=== PATIENT | female | born 1965 | race Caucasian/White ===

== ENCOUNTER 2017-01-19 11:08 | Inpatient (IN) ==
[2017-01-13 12:39] LABS: Appearance,Urine CLEAR; Bilirubin,Urine NEG (NEG); Color,Urine STRAW; Glucose,Urine (UA) NEGATIVE (NEG); Leukocyte Esterase,Urine NEG /uL (NEG); Nitrate,Urine NEG (NEG); Protein,Urine NEG (NEG); Specific Gravity,Urine 1.008 (1.000-1.035); Urine Blood NEG mg/dL (<0.03); Urobilinogen,Urine NEG (NEG)
[2017-01-13 15:25] LABS: Basophils # (Auto) 0 K/mcL (0.0-0.3); Basophils % (Auto) 0.4 % (0.0-2.0); Eosinophils # (Auto) 0.2 K/mcL (0.0-0.7); Eosinophils % (Auto) 1.9 % (0.0-7.0); Granulocytes % (Auto) 75.7 % (38.0-78.0); Lymphocytes # (Auto) 1.7 K/mcL (1.5-4.8); Lymphocytes % (Auto) 17.1 % (15.5-49.0); Mean Cell Volume 85.7 fL (80.0-100.0); Mean Corpuscular HGB Conc 32.3 g/dL (31.0-36.0); Mean Corpuscular Hemoglobin 27.7 pg (26.0-34.0); Monocytes # (Auto) 0.5 K/mcL (0.1-0.9); Monocytes % (Auto) 4.9 % (1.0-9.0); Platelet Count 312 K/mcL (140-440); Red Cell Distribution Width 13.5 % (11.5-14.5)
[2017-01-13 15:34] LABS: Blood Urea Nitrogen 11 mg/dl (6-20)
[~2017-01-19 11:08] MED LIST: ACETAMINOPHEN 500 MG TABLET PO SCH; CLINDAMYCIN 900 MG in DEXTROSE 5% IN WATER 50 ML IV SCH; KETOROLAC 30 MG, ROPIVACAINE HCL/PF 49.5 ML, EPINEPHrine 0.5 MG, 0.9 % SODIUM CHLORIDE ... IJ SCH; PREGABALIN 150 MG CAPSULE PO SCH; ceFAZolin 1 GM VIAL IV SCH; oxyCODONE 10 MG TAB.ER.12H PO SCH
[2017-01-19] MEDS ORDERED: ROPIVACAINE HCL/PF 30 ML VIAL IJ ONE (14:45)
[2017-01-19] MEDS ORDERED: MIDAZOLAM 5 MG/5 ML VIAL IV ONE (14:45)
[2017-01-19] MEDS ORDERED: fentaNYL 250 MCG/5 ML VIAL IV ONE (14:45)
[2017-01-19] MEDS ORDERED: DEXAMETHASONE 10 MG/ML VIAL IV ONE (14:45)
[2017-01-19] MEDS ORDERED: PROPOFOL 200 MG/20 ML VIAL IV ONE (14:45)
[2017-01-19] MEDS ORDERED: TRANEXAMIC ACID 1,000 MG/10 ML VIAL IV ONE (14:45)
[2017-01-19] MEDS ORDERED: ONDANSETRON 4 MG/2 ML VIAL IV ONE (14:45)
[2017-01-19] MEDS ORDERED: LIDOCAINE HCL/PF 100 MG/5 ML SYRINGE IV ONE (14:45)
[2017-01-19] MEDS ORDERED: GENTAMICIN SULFATE 800 MG/20 ML VIAL IR ONE (15:29)
[2017-01-19] MEDS ORDERED: BENZOCAINE/MENTHOL 1 LOZENGE PO PRN ×2 (16:18→16:35)
[2017-01-19] MEDS ORDERED: MEPERIDINE 25 MG/ML SYRINGE IV PRN (16:18)
[2017-01-19] MEDS ORDERED: PROMETHAZINE 25 MG/ML VIAL IV PRN (16:18)
[2017-01-19] MEDS ORDERED: ONDANSETRON 4 MG/2 ML VIAL IV PRN (16:18)
[2017-01-19] MEDS ORDERED: ATROPINE SULFATE 0.4 MG/ML VIAL IV PRN (16:18)
[2017-01-19] MEDS ORDERED: METOPROLOL TARTRATE 5 MG/5 ML VIAL IV PRN (16:18)
[2017-01-19] MEDS ORDERED: MEPERIDINE 50 MG/ML SYRINGE IM ONE (16:18)
[2017-01-19] MEDS ORDERED: NALOXONE HCL 0.4 MG/ML VIAL IV PRN (16:18)
[2017-01-19] MEDS ORDERED: FLUMAZENIL 0.1 MG/ML ML IV PRN (16:18)
[2017-01-19] MEDS ORDERED: fentaNYL 100 MCG/2 ML VIAL IV PRN (16:18)
[2017-01-19] MEDS ORDERED: HYDROmorphone 2 MG/ML SYRINGE IV PRN ×2 (16:18→16:35)
[2017-01-19] MEDS ORDERED: ePHEDrine 50 MG/ML AMPUL IV PRN (16:18)
[2017-01-19] MEDS ORDERED: IPRATROPIUM/ALBUTEROL 3 ML AMPUL.NEB NEB PRN (16:18)
[2017-01-19] MEDS ORDERED: KETOROLAC 30 MG/ML VIAL IV ONE (16:18)
[2017-01-19] MEDS ORDERED: METHOCARBAMOL 1,000 MG/10 ML VIAL IV PRN (16:18)
[2017-01-19] MEDS ORDERED: diphenhydrAMINE 50 MG/ML VIAL IV PRN (16:18)
[2017-01-19] MEDS ORDERED: PROMETHAZINE 25 MG/ML VIAL IM ONE (16:18)
[2017-01-19] MEDS ORDERED: LACTATED RINGERS 1,000 ML IV SCH (16:30)
[2017-01-19] MEDS ORDERED: BISACODYL 10 MG SUPP.RECT PR PRN (16:35)
[2017-01-19] MEDS ORDERED: ACETAMINOPHEN 325 MG TABLET PO PRN (16:35)
[2017-01-19] MEDS ORDERED: FLEETS ADULT ENEMA PR PRN (16:35)
[2017-01-19] MEDS ORDERED: POLYETHYLENE GLYCOL 3350 17 GM PACKET PO PRN (16:35)
[2017-01-19] MEDS ORDERED: TRANEXAMIC ACID 1,000 MG/10 ML VIAL IV SCH (16:35)
[2017-01-19] MEDS ORDERED: MAGNESIUM HYDROXIDE 30 ML ORAL.SUSP PO PRN (16:35)
--- NOTE | 2017-01-19 16:35 | Brief Operative Note ---
Date of procedure: 01/19/17 Pre-op diagnosis: right knee djd Post-op diagnosis: same Procedure: right total knee with robot Grafts/Implants: Yes Anesthesia: GETA Complications: none Complications Description: 01/19/17 16:34 none Surgeon: August Gasca Pe Teacher: Nilesh Marroquin Estimated blood loss (cc): 25 Tourniquet Time (Minutes): 63 Specimens Removed/Pathology: none sent Condition: stable Disposition: PACU
--- NOTE | 2017-01-19 17:57 | XRay Report ---
CLINICAL INFORMATION: Postsurgical follow-up TECHNIQUE: Portable AP and lateral right knee COMPARISON: None. FINDINGS: Status post right total knee arthroplasty. Femoral and tibial complements are in anatomic positions. There is soft tissue and intra-articular gas IMPRESSION: Status post right total knee arthroplasty Interpreted and Authenticated by: Kevin Baig 01/19/17
[2017-01-19] MEDS ORDERED: KETOROLAC 15 MG/ML VIAL IV SCH (18:00)
[2017-01-19] MEDS: ONDANSETRON 4 MG/2 ML VIAL IV PRN (19:43)
[2017-01-19] MEDS: HYDROcodone/APAP 10/325MG TABLET PO PRN (20:20)
[2017-01-19] MEDS: ASPIRIN 325 MG ENTERIC COATED TABLET PO SCH (20:20)
[2017-01-19] MEDS: DOCUSATE SODIUM 100 MG CAPSULE PO SCH (20:20)
[2017-01-19] MEDS: SENNOSIDES 1 TABLET PO SCH (20:20)
[2017-01-19] MEDS: 0.45 % SODIUM CHLORIDE 1,000 ML IV SCH (20:22)
[2017-01-19] MEDS ORDERED: TEMAZEPAM 15 MG CAPSULE PO PRN (21:00)
[2017-01-19] MEDS: 0.9 % SODIUM CHLORIDE 10 ML SYRINGE IV SCH (21:35)
[2017-01-19] MEDS: CLINDAMYCIN 900 MG in DEXTROSE 5% IN WATER 50 ML IV SCH (23:06)
[2017-01-20] MEDS: 0.45 % SODIUM CHLORIDE 1,000 ML IV SCH ×5 (04:23→23:56)
[2017-01-20] MEDS: CLINDAMYCIN 900 MG in DEXTROSE 5% IN WATER 50 ML IV SCH (05:26)
[2017-01-20] MEDS: HYDROcodone/APAP 10/325MG TABLET PO PRN ×5 (05:33→22:54)
[2017-01-20] MEDS: 0.9 % SODIUM CHLORIDE 10 ML SYRINGE IV SCH ×3 (06:04→21:00)
[2017-01-20] MEDS ORDERED: traMADol 50 MG TABLET PO PRN (06:08)
[2017-01-20] MEDS: ONDANSETRON 4 MG/2 ML VIAL IV PRN (06:59)
--- NOTE | 2017-01-20 07:01 | Orthopedic Progress Note ---
Subjective Patient information: Note initiated : 01/20/17 at 7:00 am Service Date, if different from initiated Date: [] Patient: Kenyatta Wilkins 51 y/o F admitted on 01/19/17 for Right Total Knee Arthroplasty - Robotic. Chief Complaint: [doing well but wants to stay 1 more day without c/o pain or n and v] Objective Vital signs: Vital Signs Temp Pulse Resp BP Pulse Ox 01/20/17 03:32 98.1 F 58 L 16 116/65 95 01/20/17 03:31 95 01/20/17 00:00 97.7 F 60 16 126/70 96 01/19/17 23:00 96 01/19/17 22:10 64 16 97 01/19/17 20:56 59 L 117/79 99 01/19/17 20:00 97 01/19/17 19:56 70 124/83 100 01/19/17 19:26 69 132/75 98 01/19/17 19:00 96 01/19/17 18:56 73 151/103 99 01/19/17 18:41 69 140/88 96 01/19/17 18:26 69 132/87 94 01/19/17 18:11 96.7 F L 72 16 127/82 96 01/19/17 17:50 97.2 F L 78 12 149/84 98 01/19/17 17:35 72 12 147/80 98 01/19/17 17:20 78 14 137/90 98 01/19/17 17:05 97.8 F 86 16 145/76 100 01/19/17 11:08 97.5 F L 70 16 140/90 99 Intake and Output 01/19/17 01/20/17 01/20/17 21:59 05:59 13:59 Intake Total 2099 1356 / 1356 Output Total 700 / 700 1100 / 1100 Balance 1400 / 1400 256 / 256 Intake: IV 1056 / 1056 Sodium Chloride 0.45% 1, 1000 / 1000 000 ml @ 125 mls/hr IV . Q8H ASIA Rx#:[id number] Cleocin 900 mg In 56 / 56 Dextrose 5% in Water 50 ml @ 100 mls/hr IV Q8H ASIA Rx#:[id number] Oral 300 / 300 IV - Manual Only 2099 Output: Urine Catheter Amount 350 / 350 Void Amount 250 / 250 900 / 900 Emesis 50 / 50 200 / 200 Estimated Blood Loss 50 / 50 Other: # Emeses 1 Weight 221 lb Intake & Output: Intake & Output 01/19/17 01/20/17 01/20/17 21:59 05:59 13:59 Intake Total 2099 1356 / 1356 Output Total 700 / 700 1100 / 1100 Balance 1400 / 1400 256 / 256 Weight 221 lb Intake: IV 1056 / 1056 Sodium Chloride 0.45% 1, 1000 / 1000 000 ml @ 125 mls/hr IV . Q8H ASIA Rx#:[id number] Cleocin 900 mg In 56 / 56 Dextrose 5% in Water 50 ml @ 100 mls/hr IV Q8H ASIA Rx#:[id number] Oral 300 / 300 IV - Manual Only 2099 Output: Urine Catheter Amount 350 / 350 Void Amount 250 / 250 900 / 900 Emesis 50 / 50 200 / 200 Estimated Blood Loss 50 / 50 Other: # Emeses 1 Incision: Yes healing Incision clean and dry: Yes Dressing: Yes clean Weight bearing status: full Neurological exam IM: Yes oriented X3, Yes neurovascular intact Extremities exam IM: Yes normal inspection, Yes Foot pink and warm, Yes neurovascular intact - Labs CBC & BMP: 01/20/17 04:55 01/13/17 11:23 Labs: 01/20/17 01/13/17 04:55 11:23 Hgb 14.7 Hct 38.2 45.4
--- NOTE | 2017-01-20 07:04 | Discharge Summary ---
Ortho Discharge - TKA - Patient Instructions Diet: Regular Diet Activity: activity as tolerated, weight bearing as tolerated Total Knee Protocol: For Total Knee: Start ROM LEON with stationary bike or rocking chair. Work on gaining full extension of knee. Posterior dislocation precautions provided. Hip abductor strengthening and gait training instructions provided. Apply Cryocuff as instructed. Dressing Care: Aquacel Ag - leave on for 5 days - Follow Up Plan Follow Up Appointments: Nilesh Marroquin PA-C [Physician Commercial Installer] - Disposition: Home, Self-Care Prognosis: Good Rehab Potential: Good I certify that the patient requires SNF services: No Overall status at discharge: patient is progressing back to baseline - Orders For Discharge Additional Discharge Orders: Physical Therapy at Discharge - TKA Location: Determined By Patient CPM Discharge Order Location: Determined By Patient CPM Discharge Order Location: Determined By Patient Toilet Riser Discharge Order Location: Determined By Patient Walker Location: Determined By Patient
--- NOTE | 2017-01-20 07:10 | Operative Note ---
DATE OF OPERATION: 01/19/2017 PREOPERATIVE DIAGNOSIS: Right knee degenerative arthritis in all three compartments. POSTOPERATIVE DIAGNOSIS: Right knee degenerative arthritis in all three compartments. PROCEDURE: Right total knee arthroplasty using FRANKLIN robot. SURGEON: August Gasca MD TELEPHONE OPERATOR RECEPTIONIST: Nilesh Marroquin PA-C ANESTHESIA: General LMA anesthesia. COMPLICATIONS: None. TOURNIQUET TIME: Approximately 63 minutes. IMPLANTS: FRANKLIN robot [place] knee and distal tibial plate, both cemented with an extended 50 mm stem, 11 mm poly, 36 mm patellar button. DESCRIPTION OF PROCEDURE: The patient was brought to the operating room, placed supine on the operating table, and put to sleep with general LMA anesthesia. Once asleep, the patient had the right leg sterilely prepped and draped in the usual sterile fashion. We confirmed this was the operative site. Ioban was placed over the skin, and we made a midline incision, a mid vastus approach performed and severe arthritis of all three compartments was noted. Two pins above and below the knee were placed. These were intramedullary pins, tricortical that were then used to place the arrays. Once stable, we took the knee through range of motion to register center of hip rotation and register medial and lateral malleoli. Once this was done, we then placed 60 points in the knee, 30 on the femur, 30 on the tibia. Intraarticular pins were also registered. We then balanced the knee to confirm ligamentous laxity, both in flexion and extension. With these measurements, we then balanced the knee by moving the implants and aligning the knee so they are perfectly balanced. Once perfectly balanced, we then brought in the robot and registered the robot as well as the femoral pin. We then made the distal femoral pin and the posterior chamfer cut. Once done, we changed the saw blade and then made our anterior and posterior cuts and then the chamfer cut on the femur. These bony fragments were removed. Osteophytes had already been removed. We then made our tibial cut after registering the robot and the intracapsular pin. These were registered. The seemed to align perfectly. We then made our cuts with the robot. The robot then was moved. The fragments were also removed from the tibia and spurs posteriorly were removed both medial and lateral. We removed the remnants of the meniscus. At this point, we put in the tibial baseplate, set the rotation for the preoperative plan. We punched into place a tibial baseplate both central pin and the fins were punched into place. We placed a poly liner 11. We placed the femur into place and positioned this as far lateral as possible. Once this fit perfectly we then trialed the knee. We were at 0 degrees extension, 1 degrees of varus, balance both in flexion and extension. Once this was done, we then prepared the patella. It measured 23 mm in total thickness. This was cut to 14. A 36 mm patellar button was put into place. Because of the size of the patient we did not do a chamfer cut. We then irrigated thoroughly and cemented into place the above-mentioned sizes without difficulty. Once this was done, we kept the knee at 45 degrees, deflated the tourniquet at 63 minutes and removed any remnants of the extra cement. Once this was done, we then flushed the knee once more, closed the capsule with #2 FiberWire and #2 double-armed Maxon. There was no complication. The patient tolerated this well. Skin was closed with 2-0 Vicryl and adhesive closure. Sterile bandage applied. Tourniquet deflated at 63 minutes. MIGUEL:emmanuelle Job ID: [id number] Doc ID: [id number] August Gasca MD
[2017-01-20] MEDS: DOCUSATE SODIUM 100 MG CAPSULE PO SCH ×2 (10:22→20:44)
[2017-01-20] MEDS: ASPIRIN 325 MG ENTERIC COATED TABLET PO SCH ×2 (10:22→20:44)
[2017-01-20] MEDS: CALCIUM CARBONATE 500 MG TAB.CHEW CHEWED PRN (18:49)
[2017-01-20] MEDS: ONDANSETRON ODT 4 MG TABLET SL PRN ×2 (18:49→22:54)
[2017-01-20] MEDS: SENNOSIDES 1 TABLET PO SCH (20:44)
[2017-01-21] MEDS: CALCIUM CARBONATE 500 MG TAB.CHEW CHEWED PRN ×2 (02:56→07:12)
[2017-01-21] MEDS: ONDANSETRON ODT 4 MG TABLET SL PRN ×2 (02:56→07:10)
[2017-01-21] MEDS: HYDROcodone/APAP 10/325MG TABLET PO PRN ×3 (02:57→11:04)
--- NOTE | 2017-01-21 07:20 | Orthopedic Progress Note ---
Subjective Patient information: Note initiated : 01/21/17 at 7:19 am Service Date, if different from initiated Date: [] Patient: Kenyatta Wilkins 51 y/o F admitted on 01/19/17 for Right Total Knee Arthroplasty - Robotic. Chief Complaint: [minimal pain] Objective Vital signs: Vital Signs Temp Pulse Pulse Resp BP BP Pulse Ox 01/21/17 04:00 98.2 F 68 18 107/64 98 01/20/17 23:30 98.0 F 70 18 109/65 97 01/20/17 19:43 97.8 F 78 20 109/70 96 01/20/17 16:00 95 01/20/17 15:51 98.4 F 18 131/78 95 01/20/17 12:06 98.2 F 20 110/63 95 01/20/17 12:00 95 01/20/17 08:00 71 97 01/20/17 07:51 98.4 F 20 120/67 94 Intake and Output 01/20/17 01/21/17 01/21/17 21:59 05:59 13:59 Intake Total 1820 / 1820 800 / 800 Output Total 650 / 650 1300 / 1300 Balance 1170 / 1170 -500 / -500 Intake: IV 1000 / 1000 Sodium Chloride 0.45% 1, 1000 / 1000 000 ml @ 125 mls/hr IV . Q8H ASIA Rx#:[id number] Oral 820 / 820 800 / 800 Output: Void Amount 650 / 650 1300 / 1300 Other: Meal Dinner Percent of Meal Consumed 100% Feeding Ability Independent # Voids 3 Weight 224 lb Intake & Output: Intake & Output 01/20/17 01/21/17 01/21/17 21:59 05:59 13:59 Intake Total 1820 / 1820 800 / 800 Output Total 650 / 650 1300 / 1300 Balance 1170 / 1170 -500 / -500 Weight 224 lb Intake: IV 1000 / 1000 Sodium Chloride 0.45% 1, 1000 / 1000 000 ml @ 125 mls/hr IV . Q8H ASIA Rx#:[id number] Oral 820 / 820 800 / 800 Output: Void Amount 650 / 650 1300 / 1300 Other: Meal Dinner Percent of Meal Consumed 100% Feeding Ability Independent # Voids 3 Incision: Yes healing Incision clean and dry: Yes Dressing: Yes clean Weight bearing status: full Neurological exam IM: Yes oriented X3, Yes neurovascular intact Extremities exam IM: Yes Foot pink and warm, Yes neurovascular intact - Labs CBC & BMP: 01/20/17 04:55 01/13/17 11:23 Labs: 01/20/17 01/13/17 04:55 11:23 Hgb 14.7 Hct 38.2 45.4
[2017-01-21] MEDS ORDERED: PANTOPRAZOLE 40 MG TABLET PO SCH (07:30)
[2017-01-21] MEDS: 0.45 % SODIUM CHLORIDE 1,000 ML IV SCH (09:56)
[2017-01-21] MEDS: DOCUSATE SODIUM 100 MG CAPSULE PO SCH (10:21)
[2017-01-21] MEDS: ASPIRIN 325 MG ENTERIC COATED TABLET PO SCH (10:21)
[2017-01-21] MEDS: 0.9 % SODIUM CHLORIDE 10 ML SYRINGE IV SCH ×2 (10:34→13:46)
== END 2017-01-21 12:45 | disposition home or self-care (01) | DRG 470 ==
LOC: MEDSUR 11:08
PROVIDERS: ADMIT Orthopaedic Surgery; ATTEND Orthopaedic Surgery